=== PATIENT | male | born 1950 | race Caucasian/White ===

== ENCOUNTER → 2025-07-04 | Emergency (ER) | payer MEDICARE ==
[~2025-07-04] VITALS: Ht 177.8 cm; Wt 64.5 kg
[~2025-07-04] MED LIST: iohexol 300mg/ml 100ml inj. ONE
--- NOTE | 2025-07-04 10:18 | ELECTROCARDIOGRAPH REPORT ---
[facility] Test Date: 2025-07-04 Test Time: 10:05:22 Pat Name: REINALDO THAO Department: EMERGENCY ROOM Room: Gender: M Test Preparer: GOOD : 1950 Requested By: REKHA KLINE Order Number: [id number] Reading MD: Measurements Intervals [place] Rate: 56 P: 82 MN: 180 QRS: 84 QRSD: 94 T: 72 QT: 408 QTc: 394 Interpretive Statements Sinus bradycardia Borderline right axis deviation Baseline wander in lead(s) II,III,aVF Please click the below link to view image of tracing.
[2025-07-04 10:38] LABS: MEAN PLATELET VOLUME 10.0 FL (7.4-10.4); RED CELL DISTRIBUTION WIDTH 13.0 % (11.5-14.5)
--- NOTE | 2025-07-04 10:45 | RADIOLOGY REPORT ---
CLINICAL HISTORY: CP TECHNIQUE: 1 view of the chest was obtained. WID: COMPARISON: None FINDINGS: Lungs: clear Cardiomediastinal silhouette: normal in size Bones: No acute osseous abnormality. Imaged Upper Abdomen: unremarkable. IMPRESSION: NO ACUTE CARDIOPULMONARY PROCESS.
[2025-07-04 11:02] LABS: CREATININE 0.97 MG/DL (0.60-1.10); PRO BRAIN NATRIURETIC PEPTIDE 386 PG/ML (0-125); TOTAL CARBON DIOXIDE 29.2 MMOL/L (24-32); eCRCL 61 ML/MIN; eGFR 76 ML/MIN
--- NOTE | 2025-07-04 11:09 | Physician Documentation ---
History of Present Illness General Chief Complaint: Chest Pain Stated Complaint: CHEST PAIN Time Seen by MD: 10:40 Mode of Arrival: POV History of Present Illness Initial Comments The patient is a 74-year-old male with a history of vasculitis (who gets infusions every six months next scheduled infusion is next week) who presents with 24 hours of epigastric and right upper quadrant pain. He had his gallbladder taken out last year. The patient reports that over the past two months he has had intermittent attacks similar to the past 24 hours. Medication Reconciliation Allergies: Coded Allergies: Penicillins (Verified Allergy, Unknown, 07/04/25) Review of Systems ROS Constitutional: Denies chills, fatigue, fever, weight gain or weight loss. HEENT: Denies hearing loss, sinus pressure or visual changes. Respiratory: Denies cough, shortness of breath or wheezing. Cardiovascular: Denies chest pain, pain while walking (claudication), edema or palpitations. Gastrointestinal: Right upper quadrant pain and epigastric burning Genitourinary: Denies painful urination (dysuria), excessive amount of urine (polyuria) or urinary frequency. Metabolic/Endocrine: Denies cold intolerance, heat intolerance, excessive thirst (polydipsia) or excessive hunger (polyphagia). Neurological: Denies dizziness, extremity numbness, extremity weakness, headaches, seizures or tremors. Psychiatric: Denies anxiety or depression. Integumentary: Denies breast discharge, breast lump, hives, mole change(s), rash or skin lesion. Musculoskeletal: Denies back pain, joint pain, joint swelling or neck pain. Hematologic: Denies easily bleeding, easily bruises, lymphedema or issues with blood clots. Immunologic: Denies food allergies or seasonal allergies. Physical Exam Physical Exam Vital Signs: Temperature: 97.6, Source: Temporal, Heart Rate: 58, Respiratory Rate: 17, BP: 125/66, Pulse Oximetry: 97, Weight: 64.500 Oxygen Flow Rate: 0 Physical Exam Physical Exam Vitals and nursing note reviewed. Constitutional: General: Patient is awake, alert, oriented x 4 in no acute distress and well appearing. Speech is clear and lucid. Appearance: Normal appearance. Patient is not ill-appearing, toxic-appearing or diaphoretic. HENT: Head: Normocephalic and atraumatic. Mouth/Throat: Mouth: Mucous membranes are moist. Pharynx: Oropharynx is clear. Eyes: General: No scleral icterus. Extraocular Movements: Extraocular movements intact. Pupils: Pupils are equal, round, and reactive to light. Neck: Supple, no Kernig or Brudzinski sign. Cardiovascular: Rate and Rhythm: Normal rate and regular rhythm. Heart sounds: No murmur heard. Pulmonary: Effort: No respiratory distress. Breath sounds: No wheezing, rhonchi or rales. Abdominal: General: There is no distension. Palpations: There is no fluid wave, hepatomegaly or mass. Tenderness: Right upper quadrant tenderness Musculoskeletal: General: No swelling or deformity. Skin: Coloration: Skin is not jaundiced. Findings: No erythema or rash. Neurological: Mental Status: Patient is alert. Progress Results/Orders Results/Orders Completed Orders - OHLFS,RONALD Mcclure MD Normal Saline 1000ml (0.9% Sodium Chlori (07/04/25 19:35) Normal Saline 1000ml (0.9% Sodium Chlori (07/04/25 19:35) Vital Signs 07/04/25 07/04/25 07/04/25 07/04/25 10:10 10:45 10:52 11:57 Temp 97.6 Pulse 62 58 50 Resp 18 17 17 16 B/P (MAP) 118/62 125/66 (85) 118/70 (86) Pulse Ox 98 97 97 O2 Flow Rate 0 0 07/04/25 07/04/25 07/04/25 07/04/25 13:00 14:00 15:36 17:07 Pulse 59 55 64 60 Resp 16 16 14 18 B/P (MAP) 125/70 (88) 116/68 (84) 121/67 (85) 120/70 (87) Pulse Ox 98 98 97 98 O2 Flow Rate 0 0 0 0 07/04/25 07/04/25 17:27 20:52 Temp 98.4 Pulse 60 Resp 16 16 B/P (MAP) 113/68 (83) Pulse Ox 97 O2 Flow Rate 0 Laboratory Tests Test 07/04/25 10:11 07/04/25 11:10 07/04/25 12:05 07/04/25 12:19 White Blood Count 5.5 Red Blood Count 4.42 L Hemoglobin 14.7 Hematocrit 42.8 Mean Corpuscular Volume 96.9 Mean Corpuscular Hemoglobin 33.2 H Mean Corpuscular Hemoglobin Concent 34.2 Red Cell Distribution Width 13.0 Platelet Count 168 Mean Platelet Volume 10.0 Neutrophils (%) (Auto) 86.1 H Lymphocytes (%) (Auto) 6.5 L Monocytes (%) (Auto) 6.7 Eosinophils (%) (Auto) 0.4 Basophils (%) (Auto) 0.3 Neutrophils # (Auto) 4.8 Lymphocytes # (Auto) 0.4 L Monocytes # (Auto) 0.4 Eosinophils # (Auto) 0.0 Basophils # (Auto) 0.0 CBC Comment Sodium Level 140 143 Potassium Level 4.8 4.8 Chloride Level 105 107 Carbon Dioxide Level 29.2 28.5 Anion Gap 6 L 8 Blood Urea Nitrogen 21 H 22 H Creatinine 0.97 0.96 Estimated GFR/1.73 m2 76 77 BUN/Creatinine Ratio 21.6 H 22.9 H Glucose Level 141 H 118 H Calcium Level 10.2 H 9.7 Magnesium Level 2.2 Troponin I High Sensitivity 5 5 Pro-B-Type Natriuretic Peptide 386 H Albumin 3.8 3.5 Lipase > 375 H Chemistry Comments SARS-CoV-2 Antigen (Rapid) Negative Urine Specimen Description Cln catch midstream Urine Color Dark yellow Urine Clarity Clear Urine pH 6.0 Urine Specific [place] 1.015 Urine Protein Negative Urine Glucose (UA) Negative Urine Ketones Negative Urine Occult Blood Negative Urine Nitrite Negative Urine Bilirubin Moderate Urine Urobilinogen 1.0 Urine Leukocyte Esterase Negative Urine Culture Indicated Not ind Volume Urine Centrifuged 10 ml Urine Comment Total Bilirubin 5.7 H Aspartate Amino Transf (AST/SGOT) 668 H Alanine Aminotransferase (ALT/SGPT) 803 H Alkaline Phosphatase 1096 H Troponin I High Sens Percent Delta 0 Troponin I Hi Sens Absolute Change 0 Total Protein 6.8 Globulin 3.3 Albumin/Globulin Ratio 1.1 Test 07/04/25 13:35 Troponin I High Sensitivity 6 Troponin I High Sens Percent Delta 20 Troponin I Hi Sens Absolute Change 1 Medical Decision Making Findings CT scan reveals a four mm by 4 mm stone in the distal common bile duct. Bilirubin 5.7, AST 668, ALT 803, alk phosphatase 1096. The white count is normal. I spoke with our GI advisor consultant, Dr. Henning, at 3:30 p.m. and she asked that the patient be transferred for ERCP. Departure Disposition: 02 [facility]ORT TERM [facility]OS[facility] Impression: Primary Impression: Gallstone pancreatitis Referrals: NO PRIMARY CARE PROVIDER (PCP) Additional Comment Additional Comment The patient was accepted by [facility] by for transfer Signature Scribe Signature: . Attestation: The note accurately reflects work and decisions made by me.Ronald Solis MD 07/07/25 09:17 . REKHA KLINE MD Jul 04, 2025 11:09 RONALD SOLIS MD Jul 04, 2025 19:37
--- NOTE | 2025-07-04 12:08 | RADIOLOGY REPORT ---
Technique: Real-time ultrasound imaging of the abdomen was performed with grayscale and color Doppler. Indication: Right upper quadrant Comparison: None Findings: Liver measures 15 cm. It is increased in echogenicity and echotexture without focal mass. Portal vein is normal in caliber and demonstrates normal hepatopetal flow. Small amount of perihepatic ascites fluid Gallbladder is removed. The common bile duct measures 6 mm. No intrahepatic biliary ductal dilatation. The right kidney measures 10.6 cm. The left kidney measures cm. No hydronephrosis or sonographic evidence of nephrolithiasis. The pancreas is obscured.. Impression: Cholecystectomy. Small amount of perihepatic ascites fluid. Recommend CT abdomen pelvis to further evaluate. Echogenic liver which can be seen with hepatic steatosis, cirrhosis.
[2025-07-04 12:17] LABS: LEUKOCYTE ESTERASE ,URINE NEGATIVE (Neg); NITRITES, URINE NEGATIVE (Neg); OCCULT BLOOD,URINE NEGATIVE (Neg)
[2025-07-04 12:18] LABS: UA COLLECTION TYPE CLN CATCH MIDSTREAM
[2025-07-04 12:54] LABS: CREATININE 0.96 MG/DL (0.60-1.10); TOTAL CARBON DIOXIDE 28.5 MMOL/L (24-32); eCRCL 62 ML/MIN; eGFR 77 ML/MIN
--- NOTE | 2025-07-04 13:25 | RADIOLOGY REPORT ---
Exam: CT CT ABDOMEN PELVIS W/ IV CONTRAST History: Elevated lipase, epigastric pain Comparison Study: None TECHNIQUE: Multidetector CT of the abdomen and pelvis with IV contrast. Axial, coronal and sagittal multiplanar reformats were obtained from the axial data set by the technologist. Radiation Dose Information: CT Dose: CTDI volume is 8.84 mGy. Dose-length product is 474.81 mGy*cm FINDINGS: The lung bases are clear. Partially visualized heart is unremarkable. Hepatic steatosis. Otherwise, liver, spleen and adrenal glands unremarkable. Questionable minimal fat stranding adjacent to the pancreas. There is a Suggested significantly decompressed gallbladder versus cystic duct with a small gallstone and minimal adjacent fat stranding. Mild wall thickening of the nondistended common bile duct. 4 x 4 mm calculus within the distal common bile duct. Mild bilateral renal pelviectasis. Mild nonspecific bilateral perinephric fat stranding extending adjacent.Otherwise, kidneys, ureters and urinary bladder unremarkable. Prostate measures 4.1 x 4.1 x 4.9 cm with calcification. Mild gastric wall thickening which may be due to inadequate distention. Mild wall thickening of the proximal duodenum with mikki duodenal fat stranding. The remainder of the small bowel loops unremarkable. Small to moderate amount of fecal material within the colon. The large bowel is otherwise unremarkable. No evidence of intraperitoneal free air. No evidence of aortic aneurysm or dissection. Mild atherosclerotic calcification of the aorta and bilateral iliacs. No significant lymphadenopathy. Small fat containing left inguinal hernia. Soft tissues unremarkable. No evidence of acute osseous abnormalities. IMPRESSION: There is a Suggested significantly decompressed gallbladder versus cystic duct with a small gallstone and minimal adjacent fat stranding. Recommend clinical correlation and correlation with history. Cholecystectomy was documented on same-day ultrasound. Mild wall thickening of the nondistended common bile duct with minimal adjacent fat stranding and a 4 x 4 mm gallstone within the distal common bile duct. Correlate for choledocholithiasis with possible superimposed infectious process. MRCP is recommended for further evaluation. Mild wall thickening of the proximal duodenum with adjacent fat stranding be from the adjacent inflammatory process with duodenitis not completely excluded. Questionable minimal fat stranding adjacent to the pancreas. Recommend correlation with lipase.
[2025-07-04] MEDS: piperacillin/tazo 3.375gm/50ml 50 ML IV STA (15:33)
[2025-07-04] MEDS: HYDROmorphone inj. 0.5 MG/0.5 ML DISP.SYRIN IV ONE (17:27)
[2025-07-04] MEDS: ondansetron/PF 4mg/2ml inj IV ONE (17:27)
[2025-07-04] MEDS: normal saline 1000ML IV soln IVB ONE (19:35)
[2025-07-04] MEDS: normal saline 1000ml 1,000 ML IV ONE (20:36)
[2025-07-04 20:52] VITALS: BP 113/68; PULSE 60; RESP 16; TEMP 98.4; O2SAT 97
== END | disposition short-term general hospital (02) ==
LOC: ER 10:02
DX: K85.10 Biliary acute pancreatitis without necrosis or infection (principal); R06.02 Shortness of breath; Z20.822 Contact with and (suspected) exposure to COVID-19; Z88.0 Allergy status to penicillin; Z79.899 Other long term (current) drug therapy
CPT/HCPCS: 36415; 71045; 76700; 80048; 80053; 81003; 83690; 83735; 83880; 84484; 85025; 87811; 93005; 96361; 96365; 96366; 96367; 96375; 99285; J1171; J2405; J2470; J2543; J7030; Q9967